=== PATIENT | female | born 1955 | race Caucasian/White ===

== ENCOUNTER → 2019-02-11 | Outpatient (CLI) | payer BC ==
--- NOTE | 2019-02-11 16:28 | PCVCIMAG ---
EXAM: VENOUS DUPLEX LEFT LEG INDICATION: Leg pain and swelling. FINDINGS: Left leg: No thrombus in the common femoral, main femoral, or popliteal veins. These veins are compressible with phasic flow. Calf veins are unremarkable where seen. IMPRESSION: No evidence of deep venous thrombosis in the left lower extremity as detailed above. Incidental note was made of occlusive thrombus in the great saphenous vein at the level of the knee to the ankle. Great saphenous vein is patent above the level of the knee. Patient's physician office was notified of these findings. LOC:[id number]
== END | disposition home or self-care (01) ==
LOC: PCVCIMAG 14:49
PROVIDERS: ATTEND Podiatrist
DX: M79.89 Other specified soft tissue disorders (principal); M79.662 Pain in left lower leg
CPT/HCPCS: 93971